=== PATIENT | male | born 1945 | race Asian ===

== ENCOUNTER → 2018-01-10 | Outpatient (CLI) | payer MEDICARE | END | disposition home or self-care (01) | LOC: CFH 14:26 | PROVIDERS: ATTEND Internal Medicine Nephrology | DX: I12.9 Hypertensive chronic kidney disease with stage 1 through stage 4 chronic kidney disease, or unspecified chronic kidney disease (principal); N18.3 Chronic kidney disease, stage 3 (moderate); E87.5 Hyperkalemia; E55.9 Vitamin D deficiency, unspecified; E78.5 Hyperlipidemia, unspecified; D75.1 Secondary polycythemia | CPT/HCPCS: 76770 ==

== ENCOUNTER 2019-10-21 05:29 | Emergency (ER) | payer MEDICARE ==
[~2019-10-21] VITALS: Ht 177.8 cm; Wt 80.8 kg
--- NOTE | 2019-10-21 05:47 | NUR ---
Patient brought back by emergency department desktop support technician in wheelchair. Patient transferred self from wheelchair to [facility]. Patient reports feeling dizzy all night and rode the bus to the ER. patient feels dizzyness resolved during bus ride. [place] worse dizzyness at midnight the night before. Patient noticed his blood pressure was elevated on his home blood pressure cuff. Patient attached to monitor by desktop support technician. Dr. Mckinley to bedside, assessing patient. Additional blood pressure measured while provider in the room. Remains elevated. RN then attached patient to pulsatile oxygen sensor. Heart rate per electrocardiogram and pulsatile oxygen within normal limits. Awaiting provider orders.
[2019-10-21] MEDS ORDERED: AMLODIPINE 5 MG TABLET ONE (05:54)
[2019-10-21] MEDS ORDERED: AMLODIPINE 5 MG TABLET PO ONE (06:00)
[2019-10-21] MEDS ORDERED: SODIUM CHLORIDE FLUSH 10ML SYR IVF ONE (06:00)
--- NOTE | 2019-10-21 06:00 | NUR ---
Orders placed by provider and acknowledged by RN. RN returned with antihypertensive medications per order (see electronic medicine administration record.) Educated patient on orders for blood count and metabolic panel and chest xray. Patient agreeable to plan of care. Awaiting blood draw and chest xray.
--- NOTE | 2019-10-21 06:01 | NUR ---
Phlebotomy at bedside.
[2019-10-21 06:19] LABS: BASOPHILS # (AUTO) 0.01 x10^3/uL (0-0.1); BASOPHILS % (AUTO) 0 % (0-1); EOSINOPHILS # (AUTO) 0.36 x10^3/uL (0-0.4); EOSINOPHILS % (AUTO) 6 % (1-7); LYMPHOCYTES # (AUTO) 0.54 x10^3/uL (1-3.4); LYMPHOCYTES % (AUTO) 9 % (22-44); MD NO; MEAN CORPUSCULAR HEMOGLOBIN 31.7 pg (27.5-34.5); MEAN PLATELET VOLUME 8.4 fL (7.4-10.4); MONOCYTES # (AUTO) 0.18 x10^3/uL (0.2-0.8); MONOCYTES % (AUTO) 3 % (2-9); NEUTROPHILS # (AUTO) 5.25 x10^3/uL (1.8-6.8); NEUTROPHILS % (AUTO) 83 % (42-75); PLATELET COUNT 167 x10^3/uL (130-400); RED BLOOD COUNT 5.31 x10^6/uL (4.38-5.82); RED CELL DISTRIBUTION WIDTH 13.5 % (9.4-14.8)
[2019-10-21 06:26] LABS: ALANINE AMINOTRANSFERASE 26 U/L (12-78); ALBUMIN 3.7 g/dL (3.4-5.0); ANION GAP 4 mmol/L (5-15); CHLORIDE 109 mmol/L (98-107)
[2019-10-21 06:28] LABS: ALKALINE PHOSPHATASE 87 U/L (45-117); BILIRUBIN,TOTAL 0.8 mg/dL (0.2-1.0); TOTAL PROTEIN 7.6 g/dL (6.4-8.2)
[2019-10-21 06:53] VITALS: BP 140/67
== END 2019-10-21 07:01 | disposition home or self-care (01) ==
LOC: ED 05:54
DX: I12.9 Hypertensive chronic kidney disease with stage 1 through stage 4 chronic kidney disease, or unspecified chronic kidney disease (principal); N18.9 Chronic kidney disease, unspecified; J18.9 Pneumonia, unspecified organism; R42 Dizziness and giddiness; Z87.891 Personal history of nicotine dependence
CPT/HCPCS: 36415; 71045; 80053; 85025; 93005; 99284

== ENCOUNTER → 2020-08-17 | Outpatient (CLI) | payer MEDICARE | END | disposition home or self-care (01) | LOC: EDSTATUS 08-12 08:15 → CFH 07:03 → EDSTATUS 07:30 | PROVIDERS: ATTEND Internal Medicine Nephrology | DX: K82.4 Cholesterolosis of gallbladder (principal); N28.1 Cyst of kidney, acquired; I12.9 Hypertensive chronic kidney disease with stage 1 through stage 4 chronic kidney disease, or unspecified chronic kidney disease; G47.33 Obstructive sleep apnea (adult) (pediatric); E80.6 Other disorders of bilirubin metabolism; D75.1 Secondary polycythemia; E55.9 Vitamin D deficiency, unspecified; E78.5 Hyperlipidemia, unspecified; N18.30 Chronic kidney disease, stage 3 unspecified | CPT/HCPCS: 76700 ==